=== PATIENT | female | born 1980 ===

== ENCOUNTER 2024-11-07 12:11 | Outpatient (REF) | payer MEDICAID, SELFPAY ==
[2024-11-07 12:31] LABS: Hemoglobin 7.2 g/dL (12.0-16.0); Mean Corpuscular HGB Conc 30.8 g/dL (29.9-35.2); Mean Corpuscular Hemoglobin 25.3 pg (26.7-34.0); Mean Corpuscular Volume 82.1 fL (81.0-99.0); Mean Platelet Volume 9.5 fL (9.5-13.5); Platelet Count 114 10^3/uL (150-450); Red Blood Count 2.85 10^6/uL (4.20-5.40); Red Cell Distribution Width 17.2 % (11.0-15.0); White Blood Count 5.3 10^3/uL (4.0-11.0)
[2024-11-07 15:02] LABS: Hematocrit 23.4 % (36.0-48.0)
[2024-11-07 15:03] LABS: Band Neutrophils Absolute 0.1 10^3/uL (0.0-0.3); Lymphocytes Absolute Manual 0.05 10^3/uL (1.20-3.80); Segmented Neut Absolute Manual 5.08 10^3/uL (1.4-6.5)
[2024-11-07 15:05] LABS: Hypochromasia 1+
[2024-11-07 15:07] LABS: Ovalocytes 1+; Schistocytes 1+; Tear Drop Cells 1+
== END 2024-11-07 12:12 | disposition home or self-care (01) ==
LOC: LAB 12:11
PROVIDERS: Visit Provider Internal Medicine
DX: D64.9 Anemia, unspecified (principal)
CPT/HCPCS: 36415; 85007; 85027